=== PATIENT | male | born 1935 | race Caucasian/White ===

== ENCOUNTER 2022-05-29 03:57 | Day surgery (SDC) | payer OTHER, BC ==
[2022-05-26 12:47] VITALS: BMI 27.3
[2022-05-29] MEDS ORDERED: LIDOCAINE HCL/PF 2% SDV 5ML VIAL ONE (07:28)
[2022-05-29] MEDS ORDERED: DEXAMETHASONE SOD PHOSPHATE 4 MG/1 ML VIAL ONE (07:28)
[2022-05-29] MEDS ORDERED: DEXAMETHASONE SOD PHOSPHATE 10 MG/1 ML VIAL ONE (07:29)
[2022-05-29] MEDS ORDERED: BUPIVACAINE HCL/PF 0.75% 10 ML VIAL ONE (07:29)
[2022-05-29] MEDS ORDERED: LIDOCAINE HCL/PF 1% SDV 5ML VIAL ONE (07:29)
[2022-05-29] MEDS ORDERED: SODIUM CHLORIDE 0.9% P/F 10 ML VIAL IJ ONE ×2 (07:31→07:32)
[2022-05-29 07:56] VITALS: PULSE 83; RESP 20
[2022-05-29] MEDS ORDERED: LIDOCAINE HCL 1% PRESERVATIVE FREE - 30ML VIAL IJ ONE ×2 (09:25→09:52)
[2022-05-29] MEDS ORDERED: DEXAMETHASONE SOD PHOSPHATE 10 MG/1 ML VIAL IVPUSH ONE ×3 (09:26→09:52)
[2022-05-29] MEDS ORDERED: IOHEXOL 180 MG/1 ML ML IJ ONE ×2 (09:27→09:52)
[2022-05-29 10:47] VITALS: BP 163/70; TEMP 98.2
== END 2022-05-29 10:51 | disposition home or self-care (01) ==
LOC: JASU-SURG 03:57
PROVIDERS: ATTEND Pain Medicine Pain Medicine
PROC: 3E0R3BZ Introduction of Anesthetic Agent into Spinal Canal, Percutaneous Approach (ICD-10-PCS; 2022-05-29)
PROC: 3E0R33Z Introduction of Anti-inflammatory into Spinal Canal, Percutaneous Approach (ICD-10-PCS; principal; 2022-05-29 09:15)
DX: M48.061 Spinal stenosis, lumbar region without neurogenic claudication (principal); M54.16 Radiculopathy, lumbar region
CPT/HCPCS: 76000-TC-FY; J1100

== ENCOUNTER 2022-06-26 04:05 | Day surgery (SDC) | payer OTHER, BC ==
[2022-06-24 14:31] VITALS: BMI 27.3
[2022-06-26] MEDS ORDERED: BUPIVACAINE HCL/PF 0.5% (5MG/ML) 10 ML VIAL ONE (07:23)
[2022-06-26] MEDS ORDERED: TRIAMCINOLONE ACET 40MG/1ML VIAL ONE (07:23)
[2022-06-26] MEDS ORDERED: LIDOCAINE HCL/PF 1% SDV 5ML VIAL ONE (07:24)
[2022-06-26] MEDS ORDERED: DEXAMETHASONE SOD PHOSPHATE 10 MG/1 ML VIAL ONE (07:24)
[2022-06-26 09:57] VITALS: RESP 18
[2022-06-26] MEDS ORDERED: TRIAMCINOLONE ACETONIDE 40 MG/ML 10 ML VIAL IJ ONE ×2 (13:06→13:12)
[2022-06-26] MEDS ORDERED: BUPIVACAINE HCL/PF 0.75% 10 ML VIAL PNB ONE ×2 (13:06→13:12)
[2022-06-26] MEDS ORDERED: LIDOCAINE HCL 1% PRESERVATIVE FREE - 30ML VIAL IJ ONE ×2 (13:06→13:12)
[2022-06-26] MEDS ORDERED: IOHEXOL 180 MG/1 ML ML IJ ONE (13:12)
[2022-06-26 13:42] VITALS: TEMP 97.7
[2022-06-26 13:49] VITALS: BP 160/58; PULSE 80
== END 2022-06-26 13:49 | disposition home or self-care (01) ==
LOC: JASU-SURG 04:05
PROVIDERS: ATTEND Pain Medicine Pain Medicine
PROC: 3E0U3BZ Introduction of Anesthetic Agent into Joints, Percutaneous Approach (ICD-10-PCS; 2022-06-26)
PROC: 3E0U33Z Introduction of Anti-inflammatory into Joints, Percutaneous Approach (ICD-10-PCS; principal; 2022-06-26 11:30)
DX: M53.3 Sacrococcygeal disorders, not elsewhere classified (principal)
CPT/HCPCS: 76000-TC-FY; J1100

== ENCOUNTER 2022-08-28 04:13 | Day surgery (SDC) | payer OTHER, BC ==
[2022-08-27 09:57] VITALS: BMI 26.6
[2022-08-28] MEDS ORDERED: LIDOCAINE HCL/PF 1% SDV 5ML VIAL ONE (08:04)
[2022-08-28] MEDS ORDERED: BUPIVACAINE HCL/PF 0.75% 10 ML VIAL ONE (08:04)
[2022-08-28] MEDS ORDERED: ACETAMINOPHEN 500 MG TABLET (FP) PO PRN (09:41)
[2022-08-28 14:18] VITALS: RESP 20
[2022-08-28] MEDS ORDERED: LIDOCAINE HCL 1% PRESERVATIVE FREE - 30ML VIAL IJ ONE (15:54)
[2022-08-28] MEDS ORDERED: BUPIVACAINE HCL/PF 0.75% 10 ML VIAL NR ONE (15:55)
[2022-08-28 16:54] VITALS: BP 140/80; PULSE 80; TEMP 97
== END 2022-08-28 16:54 | disposition home or self-care (01) ==
LOC: JASU-SURG 04:13
PROVIDERS: ATTEND Pain Medicine Pain Medicine
PROC: 3E0T33Z Introduction of Anti-inflammatory into Peripheral Nerves and Plexi, Percutaneous Approach (ICD-10-PCS; 2022-08-28)
PROC: 3E0T3BZ Introduction of Anesthetic Agent into Peripheral Nerves and Plexi, Percutaneous Approach (ICD-10-PCS; principal; 2022-08-28 15:45)
DX: M47.816 Spondylosis without myelopathy or radiculopathy, lumbar region (principal)
CPT/HCPCS: 76000-TC-FY

== ENCOUNTER 2022-10-09 04:15 | Day surgery (SDC) | payer OTHER, BC ==
[2022-10-02 14:32] VITALS: BMI 26.6
[2022-10-09] MEDS ORDERED: LIDOCAINE HCL/PF 1% SDV 5ML VIAL ONE (07:25)
[2022-10-09] MEDS ORDERED: BUPIVACAINE HCL/PF 0.75% 10 ML VIAL ONE (07:25)
[2022-10-09] MEDS ORDERED: ACETAMINOPHEN 500 MG TABLET (FP) PO PRN (10:05)
[2022-10-09] MEDS ORDERED: LIDOCAINE 1% P/F 10 MG/ML VIAL INF ONE ×2 (11:14→11:49)
[2022-10-09] MEDS ORDERED: BUPIVACAINE HCL/PF 0.75% 10 ML VIAL NR ONE ×2 (11:14→11:49)
[2022-10-09 13:03] VITALS: RESP 18
[2022-10-09 13:04] VITALS: BP 148/68; PULSE 61; TEMP 98.2
== END 2022-10-09 12:30 | disposition home or self-care (01) ==
LOC: JASU-SURG 04:15
PROVIDERS: ATTEND Pain Medicine Pain Medicine
PROC: 3E0T33Z Introduction of Anti-inflammatory into Peripheral Nerves and Plexi, Percutaneous Approach (ICD-10-PCS; 2022-10-09)
PROC: 3E0T3BZ Introduction of Anesthetic Agent into Peripheral Nerves and Plexi, Percutaneous Approach (ICD-10-PCS; principal; 2022-10-09 11:45)
DX: M47.816 Spondylosis without myelopathy or radiculopathy, lumbar region (principal)
CPT/HCPCS: 76000-TC-FY

== ENCOUNTER 2022-10-30 04:24 | Day surgery (SDC) | payer OTHER, BC ==
[~2022-10-30 04:24] MED LIST: BUPIVACAINE HCL/PF 0.5% (5MG/ML) 10 ML VIAL IJ ONE; DEXAMETHASONE SOD PHOSPHATE 10 MG/1 ML VIAL IVPUSH ONE; LIDOCAINE HCL 1% PRESERVATIVE FREE - 30ML VIAL IJ ONE; LIDOCAINE HCL/PF 2% SDV 5ML VIAL PNB ONE
[2022-10-30] MEDS ORDERED: LIDOCAINE HCL/PF 1% SDV 5ML VIAL ONE (07:37)
[2022-10-30] MEDS ORDERED: BUPIVACAINE HCL/PF 0.75% 10 ML VIAL ONE (07:37)
[2022-10-30] MEDS ORDERED: LIDOCAINE HCL/PF 2% SDV 5ML VIAL ONE (07:37)
[2022-10-30] MEDS ORDERED: DEXAMETHASONE SOD PHOSPHATE 10 MG/1 ML VIAL ONE (07:38)
[2022-10-30 08:21] VITALS: RESP 18; TEMP 97.5; BMI 26.6
[2022-10-30] MEDS ORDERED: ACETAMINOPHEN 500 MG TABLET (FP) PO PRN (09:07)
[2022-10-30] MEDS ORDERED: LIDOCAINE HCL/PF 2% SDV 5ML VIAL PNB ONE (09:51)
[2022-10-30] MEDS ORDERED: LIDOCAINE HCL 1% PRESERVATIVE FREE - 30ML VIAL IJ ONE (09:51)
[2022-10-30] MEDS ORDERED: BUPIVACAINE HCL/PF 0.5% (5MG/ML) 10 ML VIAL IJ ONE (09:53)
[2022-10-30] MEDS ORDERED: DEXAMETHASONE SOD PHOSPHATE 10 MG/1 ML VIAL IVPUSH ONE (09:53)
[2022-10-30 11:07] VITALS: BP 141/65; PULSE 61
== END 2022-10-30 11:00 | disposition home or self-care (01) ==
LOC: JASU-SURG 04:24
PROVIDERS: ATTEND Pain Medicine Pain Medicine
PROC: 015B3ZZ Destruction of Lumbar Nerve, Percutaneous Approach (ICD-10-PCS; principal; 2022-10-30 09:30)
DX: M47.816 Spondylosis without myelopathy or radiculopathy, lumbar region (principal)
CPT/HCPCS: 76000-TC-FY; J1100

== ENCOUNTER 2023-01-26 05:10 | Day surgery (SDC) | payer OTHER, BC ==
[2023-01-26] MEDS ORDERED: IOHEXOL 180 MG/1 ML ML IJ ONE (10:03)
[2023-01-26] MEDS ORDERED: BUPIVACAINE HCL/PF 0.5% (5 MG/ML) 30 ML VIAL IJ ONE (10:03)
[2023-01-26] MEDS ORDERED: LIDOCAINE HCL 1% PRESERVATIVE FREE - 30ML VIAL INF ONE (10:03)
[2023-01-26] MEDS ORDERED: TRIAMCINOLONE ACET 40MG/1ML VIAL IJ ONE (10:04)
[2023-01-26 10:43] VITALS: PULSE 71; RESP 20; TEMP 97.8
[2023-01-26 11:09] VITALS: BP 140/74
== END 2023-01-26 11:15 | disposition home or self-care (01) ==
LOC: JASU-SURG 05:10
PROVIDERS: ATTEND Pain Medicine Pain Medicine
PROC: 3E0U3BZ Introduction of Anesthetic Agent into Joints, Percutaneous Approach (ICD-10-PCS; 2023-01-26)
PROC: 3E0U33Z Introduction of Anti-inflammatory into Joints, Percutaneous Approach (ICD-10-PCS; principal; 2023-01-26 10:15)
DX: M53.3 Sacrococcygeal disorders, not elsewhere classified (principal)
CPT/HCPCS: 76000-TC-FY

== ENCOUNTER 2023-06-11 04:04 | Day surgery (SDC) | payer OTHER, BC ==
[2023-06-09 15:30] VITALS: BMI 22.8
[2023-06-11] MEDS ORDERED: LIDOCAINE HCL/PF 1% SDV 5ML VIAL ONE (07:29)
[2023-06-11] MEDS ORDERED: DEXAMETHASONE SOD PHOSPHATE 10 MG/1 ML VIAL ONE (07:29)
[2023-06-11 08:05] VITALS: RESP 20
[2023-06-11 09:10] LABS: INR 1.1 (0.83-1.09); PROTHROMBIN TIME (PATIENT) 12.7 SEC (9.7-13.0)
[2023-06-11] MEDS ORDERED: DEXAMETHASONE SOD PHOSPHATE 10 MG/1 ML VIAL IVPUSH ONE ×3 (10:25→10:34)
[2023-06-11] MEDS ORDERED: LIDOCAINE 1% P/F 10 MG/ML VIAL INF ONE ×2 (10:26)
[2023-06-11] MEDS ORDERED: IOHEXOL 180 MG/1 ML ML IJ ONE ×2 (10:31→10:32)
[2023-06-11 10:55] VITALS: BP 101/71; PULSE 63; TEMP 98.1
== END 2023-06-11 11:29 | disposition home or self-care (01) ==
LOC: JASU-SURG 04:04
PROVIDERS: ATTEND Pain Medicine Pain Medicine
PROC: 3E0R3BZ Introduction of Anesthetic Agent into Spinal Canal, Percutaneous Approach (ICD-10-PCS; 2023-06-11)
PROC: 3E0R33Z Introduction of Anti-inflammatory into Spinal Canal, Percutaneous Approach (ICD-10-PCS; principal; 2023-06-11 10:45)
DX: M48.061 Spinal stenosis, lumbar region without neurogenic claudication (principal); M54.16 Radiculopathy, lumbar region
CPT/HCPCS: 36415; 76000-TC-FY; 85610; J1100

== ENCOUNTER 2023-07-23 04:27 | Day surgery (SDC) | payer OTHER, BC ==
[2023-07-20 10:15] VITALS: BMI 22.8
[2023-07-23] MEDS ORDERED: LIDOCAINE HCL/PF 1% SDV 5ML VIAL ONE (07:29)
[2023-07-23] MEDS ORDERED: ACETAMINOPHEN 500 MG TABLET (FP) PO PRN (11:24)
[2023-07-23 12:27] VITALS: RESP 20
[2023-07-23] MEDS ORDERED: PROPOFOL 20 ML ONE (12:49)
[2023-07-23] MEDS ORDERED: MIDAZOLAM HCL 2 MG/2 ML SINGLE DOSE VIAL ONE (12:49)
[2023-07-23] MEDS ORDERED: LIDOCAINE HCL/PF 2% SDV 5ML VIAL ONE (12:49)
[2023-07-23] MEDS ORDERED: DEXMEDETOMIDINE HCL 200 MCG/2 ML IVPB ONE (13:03)
[2023-07-23] MEDS ORDERED: DEXAMETHASONE SOD PHOSPHATE 4 MG/1 ML VIAL ONE (13:27)
[2023-07-23] MEDS ORDERED: ceFAZolin SODIUM 1 GM VIAL ONE (13:27)
[2023-07-23] MEDS: ceFAZolin SODIUM 1 GM VIAL IVPB ONE (13:28)
[2023-07-23] MEDS: LIDOCAINE 1% P/F 10 MG/ML VIAL INF ONE ×2 (13:34)
[2023-07-23] MEDS: LIDOCAINE HCL/PF 2% SDV 5ML VIAL PNB ONE ×2 (13:34)
[2023-07-23] MEDS ORDERED: ONDANSETRON 4 MG/2 ML VIAL ONE (14:21)
[2023-07-23] MEDS ORDERED: KETOROLAC TROMETHAMINE 30 MG/1 ML VIAL ONE (14:21)
[2023-07-23 15:10] VITALS: TEMP 97.5
[2023-07-23 15:53] VITALS: BP 111/56; PULSE 54
== END 2023-07-23 15:53 | disposition home or self-care (01) ==
LOC: JASU-SURG 04:27
PROVIDERS: ATTEND Pain Medicine Pain Medicine
PROC: 00HU3MZ Insertion of Neurostimulator Lead into Spinal Canal, Percutaneous Approach (ICD-10-PCS; principal; 2023-07-23 14:15)
DX: M96.1 Postlaminectomy syndrome, not elsewhere classified (principal)
CPT/HCPCS: 63650; C1897; 76000-TC-FY; C1889

== ENCOUNTER 2023-08-02 00:53 | Emergency (ER) | payer OTHER, BC ==
[2023-08-02 01:04] VITALS: BP 180/82; PULSE 103; RESP 18; TEMP 98; BMI 23.1
[2023-08-02 03:09] LABS: BASO % 0.6 % (0-2.0); HEMATOCRIT 36.6 % (35.4-49); HEMOGLOBIN 12.6 GM/dL (11.7-16.9); LYMPH % 7.9 % (8-40); MCH 30.1 pg (25.7-33.7); MCHC 34.5 g/dl (32.0-35.9); MEAN CELL VOLUME 87.3 fl (80-96); MEAN PLT VOLUME 8.8 fl (7.5-11.1); MONO % 18.7 % (3.8-10.2); NEUT % 70.8 % (42.8-82.8); PLATELET COUNT 138 10^3/uL (134-434); WHITE BLOOD COUNT 7.9 K/mm3 (4.0-10.0)
[2023-08-02] MEDS ORDERED: ONDANSETRON *ODT* 4 MG TABLET ONE (03:28)
[2023-08-02] MEDS: ONDANSETRON *ODT* 4 MG TABLET SL ONE (03:32)
[2023-08-02 03:58] LABS: POTASSIUM 3.9 mmol/L (3.5-5.1)
[2023-08-02 04:00] LABS: ALBUMIN 3.4 g/dl (3.4-5.0); CALCIUM 8.6 mg/dL (8.5-10.1)
[2023-08-02 04:04] LABS: CREATININE 0.7 mg/dL (0.55-1.3)
[2023-08-02 04:05] LABS: BILIRUBIN,TOTAL 0.9 mg/dL (0.2-1); TOT PROT 6.1 g/dl (6.4-8.2)
== END 2023-08-02 03:53 | disposition short-term general hospital (02) ==
LOC: JER 00:53
PROC: 0T9B70Z Drainage of Bladder with Drainage Device, Via Natural or Artificial Opening (ICD-10-PCS; principal; 2023-08-02)
DX: R26.2 Difficulty in walking, not elsewhere classified (principal); R29.898 Other symptoms and signs involving the musculoskeletal system; R33.9 Retention of urine, unspecified
CPT/HCPCS: 36415; 80053; 85025; 99285-25; Q0162

== ENCOUNTER 2023-08-18 01:14 | Emergency (ER) | payer OTHER, BC ==
[2023-08-18 01:21] VITALS: BP 148/67; PULSE 66; RESP 18; TEMP 98; BMI 25.8
[2023-08-18] MEDS ORDERED: LIDOCAINE HCL 2% JELLY 6 ML TP ONE (01:49)
[2023-08-18] MEDS: LIDOCAINE HCL 2% JELLY 6 ML TP ONE (02:05)
[2023-08-18] MEDS: LIDOCAINE HCL 2% JELLY 10 ML CARTRIDGE UR ONE (02:20)
[2023-08-18 02:37] LABS: EPI CELLS 11 /uL (0-25.1); HYALINE CASTS 0 /uL (0-3.1); URINE APPEARANCE CLEAR; URINE BACTERIA 14 /uL (0-1359); URINE BILIRUBIN NEGATIVE (NEGATIVE); URINE COLOR YELLOW; URINE GLUCOSE (UA) NEGATIVE (NEGATIVE); URINE KETONE NEGATIVE (NEGATIVE); URINE LEUK ESTERASE TRACE (NEGATIVE); URINE NITRITE NEGATIVE (NEGATIVE); URINE PROTEIN NEGATIVE (NEGATIVE); URINE RBC 219 /uL (0-23.9); URINE UROBILINOGEN 0.2 mg/dL (0.2-1.0); URINE WBC 48 /uL (0-25.8)
== END 2023-08-18 03:19 | disposition home or self-care (01) ==
LOC: JER 01:14
PROC: 0T9B70Z Drainage of Bladder with Drainage Device, Via Natural or Artificial Opening (ICD-10-PCS; principal; 2023-08-18)
DX: N99.89 Other postprocedural complications and disorders of genitourinary system (principal); R33.9 Retention of urine, unspecified
CPT/HCPCS: 81003; 87086; 99284-25